=== PATIENT | female | born 1985 | race Caucasian/White ===

== ENCOUNTER 2022-02-03 09:26 | Outpatient (CLI) | payer OTHER | END 2022-02-03 11:30 | disposition home or self-care (01) | LOC: PRENATAL 09:26 | PROVIDERS: ATTEND Obstetrics & Gynecology Maternal & Fetal Medicine | DX: O36.80X0 Pregnancy with inconclusive fetal viability, not applicable or unspecified (principal); O09.529 Supervision of elderly multigravida, unspecified trimester; Z3A.13 13 weeks gestation of pregnancy ==

== ENCOUNTER 2022-03-24 07:59 | Outpatient (CLI) | payer OTHER | END 2022-03-24 09:15 | disposition home or self-care (01) | LOC: PRENATAL 07:59 | PROVIDERS: ATTEND Obstetrics & Gynecology Maternal & Fetal Medicine | DX: O35.9XX0 Maternal care for (suspected) fetal abnormality and damage, unspecified, not applicable or unspecified (principal); O35.3XX0 Maternal care for (suspected) damage to fetus from viral disease in mother, not applicable or unspecified; Z3A.20 20 weeks gestation of pregnancy ==

== ENCOUNTER 2022-06-16 08:57 | Outpatient (CLI) | payer OTHER | END 2022-06-16 09:57 | disposition home or self-care (01) | LOC: PRENATAL 08:57 | PROVIDERS: ATTEND Obstetrics & Gynecology Maternal & Fetal Medicine | DX: O26.849 Uterine size-date discrepancy, unspecified trimester (principal); O36.8199 Decreased fetal movements, unspecified trimester, other fetus; O09.529 Supervision of elderly multigravida, unspecified trimester; Z3A.32 32 weeks gestation of pregnancy ==

== ENCOUNTER 2022-07-31 13:30 | Inpatient (IN) | payer OTHER ==
[~2022-07-31] VITALS: Ht 165.1 cm; Wt 83.5 kg
[2022-08-03] MEDS ORDERED: PRENATAL TABLE1 EAC1 PO (08:42)
[2022-08-03] MEDS ORDERED: COLACE100 MG PO (08:48)
[2022-08-03] MEDS ORDERED: ZYRTEC10 MG PO (08:48)
== END 2022-08-06 12:41 | disposition home or self-care (01) | DRG 807 ==
LOC: LDR 08-03 06:05 → OB/GYN 08-03 13:45
PROVIDERS: ADMIT Obstetrics & Gynecology; ATTEND Obstetrics & Gynecology
PROC: 3E0P7VZ Introduction of Hormone into Female Reproductive, Via Natural or Artificial Opening (ICD-10-PCS; 2022-08-03)
PROC: 4A1HXCZ Monitoring of Products of Conception, Cardiac Rate, External Approach (ICD-10-PCS; 2022-08-03)
PROC: 10E0XZZ Delivery of Products of Conception, External Approach (ICD-10-PCS; principal; 2022-08-04)
PROC: 0HQ9XZZ Repair Perineum Skin, External Approach (ICD-10-PCS; 2022-08-04)
PROC: 3E033VJ Introduction of Other Hormone into Peripheral Vein, Percutaneous Approach (ICD-10-PCS; 2022-08-04)
DX: O70.0 First degree perineal laceration during delivery (principal); Z37.0 Single live birth; O40.9XX0 Polyhydramnios, unspecified trimester, not applicable or unspecified; Z3A.39 39 weeks gestation of pregnancy; Z20.822 Contact with and (suspected) exposure to COVID-19